=== PATIENT | male | born 1965 ===

== ENCOUNTER 2023-09-03 12:43 | Inpatient (IN) | payer MEDICAID, OTHER ==
[~2023-09-03] VITALS: Ht 185.4 cm; Wt 108.2 kg
[2023-09-03 13:15] LABS: BASOPHILS % (AUTO) 0.6 % (0.0-2.0); HEMATOCRIT 46.2 % (41-53); LYMPHOCYTES # (AUTO) 1.1 K/uL (1.0-4.8); LYMPHOCYTES % (AUTO) 14.4 % (22.0-44.0); MEAN CORPUSCULAR HEMOGLOBIN 33.9 pg (26.0-34.0); MEAN CORPUSCULAR HGB CONC 34.5 G/dL (31.0-37.0); MEAN CORPUSCULAR VOLUME 98 fL (80-100); MONOCYTES # (AUTO) 0.5 K/uL (0.1-1.0); MONOCYTES % (AUTO) 7.4 % (2.0-9.0); NEUTROPHILS # (AUTO) 5.6 K/uL (1.8-7.7); NEUTROPHILS % (AUTO) 76.6 % (40.0-70.0); PLATELET COUNT (AUTO) 228 K/uL (150-450); RED BLOOD CELL COUNT(AUTO) 4.71 MIL/uL (4.50-5.90); WHITE BLOOD COUNT (AUTO) 7.4 K/uL (4.5-11.0)
[2023-09-03 13:19] LABS: COVID AG,FIA SOURCE NASAL SWAB
[2023-09-03 13:29] LABS: ANION GAP 11 mmol/L (8-16); CALCIUM, TOTAL 9.3 mg/dL (8.8-10.5); CARBON DIOXIDE 24 mmol/L (22-29); CHLORIDE 100 mmol/L (98-107); CREATININE 0.85 mg/dL (0.60-1.30); GLOMERULAR FILTR. RATE CALC > 60 mL/min (>60); GLUCOSE,RANDOM 121 mg/dL (70-110); POTASSIUM 3.9 mmol/L (3.5-5.1); SODIUM SERUM 135 mmol/L (136-145); UREA NITROGEN, BLOOD 18 mg/dL (7-18)
[2023-09-03 13:34] LABS: ALANINE AMINOTRANSFERASE 33 U/L (12-78); ALBUMIN 4.1 g/dL (3.4-5.0); ALKALINE PHOSPHATASE 59 U/L (46-116); ASPARTATE AMINOTRANSFERASE 24 U/L (15-37); BILIRUBIN,TOTAL 1.6 mg/dL (0.1-1.0); TOTAL PROTEIN, SERUM 8.3 g/dL (6.4-8.2)
[2023-09-03 13:38] LABS: ALCOHOL, BLOOD (SERUM) < 3 mg/dL (0-10)
[2023-09-03 13:57] LABS: SARS-COV2 (COVID) ANTIGEN,FIA Negative (Negative)
[2023-09-03] MEDS ORDERED: LORazepam 2 MG TABLET PO PRN (14:45)
[2023-09-03] MEDS ORDERED: ZOLPIDEM TARTRATE 10 MG TABLET PO PRN (14:45)
[2023-09-03] MEDS ORDERED: QUEtiapine FUMARATE 100 MG TABLET PO PRN (14:45)
[2023-09-03] MEDS ORDERED: IBUPROFEN 600 MG TABLET PO ONE (15:45)
[2023-09-03] MEDS ORDERED: ACETAMINOPHEN 500 MG TABLET PO ONE (15:45)
[2023-09-03] MEDS ORDERED: LORazepam 2 MG/ML VIAL IM ONE (16:00)
[2023-09-03] MEDS ORDERED: DiphenhydrAMINE HCL 50 MG/ML VIAL IM ONE (16:00)
[2023-09-03] MEDS ORDERED: HYDROCODONE/ACETAMINOPHEN 5-325 MG TABLET PO ONE (16:00)
[2023-09-03 19:06] VITALS: BP 123/71; PULSE 76; RESP 18; TEMP 98.9
[2023-09-03 21:24] VITALS: BP 120/75; PULSE 75; RESP 18; TEMP 98.4
[2023-09-03] MEDS ORDERED: ACETAMINOPHEN 325 MG TABLET PO PRN (21:30)
[2023-09-03] MEDS ORDERED: NICOTINE 14 MG/24 HOUR PATCH TD PRN (21:30)
[2023-09-03] MEDS ORDERED: CloNIDine HCL 0.1 MG TABLET PO PRN (21:30)
[2023-09-03] MEDS ORDERED: MAG HYDROX/ALUMINUM HYD/SIMETH ES 30 ML SUSPENSION UDCUP PO PRN (21:30)
[2023-09-03] MEDS ORDERED: INFLUENZA VIRUS VACCINE QVS 2023-24 (6MO+)/PF 60 MCG/0.5 ML SYRINGE IM. ONE (21:30)
[2023-09-03] MEDS ORDERED: GuaiFENesin/D-METHORPHAN [SUGAR-FREE] 200-20MG/10 ML SYRUP UDCUP PO PRN (21:30)
[2023-09-03] MEDS ORDERED: ALBUTEROL SULFATE HFA 90 MCG/PUFF 8 GM INHALER IH PRN (21:30)
[2023-09-03] MEDS ORDERED: LOPERAMIDE HCL 2 MG CAPSULE PO PRN (21:30)
[2023-09-03] MEDS ORDERED: MAGNESIUM HYDROXIDE SUSPENSION 30 ML UDCUP PO PRN (21:30)
[2023-09-03] MEDS ORDERED: PETROLATUM,WHITE 28 GM JELLY TP PRN (21:30)
[2023-09-03] MEDS ORDERED: ONDANSETRON HCL 4 MG TABLET PO PRN (21:30)
[2023-09-03] MEDS ORDERED: IBUPROFEN 400 MG TABLET PO PRN (21:30)
[2023-09-04 09:27] LABS: BASOPHILS % (AUTO) 0.4 % (0.0-2.0); HEMATOCRIT 43.4 % (41-53); HEMOGLOBIN 14.9 g/dL (13.5-17.5); LYMPHOCYTES # (AUTO) 1.1 K/uL (1.0-4.8); LYMPHOCYTES % (AUTO) 18.2 % (22.0-44.0); MEAN CORPUSCULAR HGB CONC 34.3 G/dL (31.0-37.0); MEAN CORPUSCULAR VOLUME 99 fL (80-100); MONOCYTES # (AUTO) 0.5 K/uL (0.1-1.0); MONOCYTES % (AUTO) 7.9 % (2.0-9.0); NEUTROPHILS # (AUTO) 4.3 K/uL (1.8-7.7); NEUTROPHILS % (AUTO) 72.5 % (40.0-70.0); PLATELET COUNT (AUTO) 198 K/uL (150-450); RED BLOOD CELL COUNT(AUTO) 4.38 MIL/uL (4.50-5.90); RED CELL DISTRIBUTION WIDTH 12.6 % (11.5-14.5); WHITE BLOOD COUNT (AUTO) 5.9 K/uL (4.5-11.0)
[2023-09-04 09:35] LABS: HEMOGLOBIN A1C 5.4 % (3.8-5.6)
[2023-09-04 09:50] VITALS: BP 138/89; PULSE 80; RESP 18; TEMP 97
[2023-09-04 09:51] LABS: ALANINE AMINOTRANSFERASE 30 U/L (12-78); ALBUMIN 3.8 g/dL (3.4-5.0); ALKALINE PHOSPHATASE 58 U/L (46-116); ANION GAP 7 mmol/L (8-16); ASPARTATE AMINOTRANSFERASE 28 U/L (15-37); BILIRUBIN,TOTAL 1.5 mg/dL (0.1-1.0); CALCIUM, TOTAL 9.2 mg/dL (8.8-10.5); CARBON DIOXIDE 27 mmol/L (22-29); CHLORIDE 105 mmol/L (98-107); CREATININE 0.78 mg/dL (0.60-1.30); GLOMERULAR FILTR. RATE CALC > 60 mL/min (>60); GLUCOSE,RANDOM 104 mg/dL (70-110); POTASSIUM 4.3 mmol/L (3.5-5.1); SODIUM SERUM 139 mmol/L (136-145); THYROID STIMULATING HORMONE 4.07 uIU/mL (0.36-3.74); TOTAL PROTEIN, SERUM 7.4 g/dL (6.4-8.2); UREA NITROGEN, BLOOD 15 mg/dL (7-18)
[2023-09-04] MEDS: TAMSULOSIN HCL 0.4 MG CAPSULE PO SCH (09:53)
[2023-09-04] MEDS: ATORVASTATIN CALCIUM 10 MG TABLET PO SCH (09:54)
[2023-09-04] MEDS: PROPRANOLOL HCL 40 MG TABLET PO SCH (09:54)
[2023-09-04] MEDS: LISINOPRIL 5 MG TABLET PO SCH (09:54)
[2023-09-04] MEDS ORDERED: APIXABAN 5 MG TABLET PO SCH (10:00)
[2023-09-04] MEDS: TraMADol HCL 50 MG TABLET PO PRN ×2 (10:05→18:09)
[2023-09-04] MEDS: DULoxetine HCL 20 MG CAPSULE PO SCH (12:19)
[2023-09-04 12:28] LABS: CHOL/HDL RATIO 3.2 (4.2-7.3); CHOLESTEROL 151 mg/dL (131-200); HDL CHOLESTEROL 47 mg/dL (40-60); LDL CHOL (CALC.) 91 mg/dL (0-130); TRIGLYCERIDES 65 mg/dL (15-150)
[2023-09-04 16:05] LABS: APPEARANCE,URINE CLEAR (CLEAR); BILIRUBIN,URINE NEGATIVE (NEGATIVE); COLOR,URINE LIGHT YELLOW (YELLOW); GLUCOSE, URINE (UA) NEGATIVE (NEGATIVE); LEUKOCYTE ESTERASE ,URINE NEGATIVE (NEGATIVE); NITRATE,URINE NEGATIVE (NEGATIVE); OCCULT BLOOD,URINE NEGATIVE (NEGATIVE); PH,URINE 6.5 (5.0-8.0); PH,URINE DRUG SCREEN 6.5 (5.0-8.0); PROTEIN,URINE NEGATIVE (NEGATIVE); UROBILINOGEN,URINE <=1.0 mg/dL (<=1.0)
[2023-09-04 16:12] LABS: AMPHET/METH SCREEN,URINE NEGATIVE (NEGATIVE); BARBITURATE SCREEN, URINE NEGATIVE (NEGATIVE); BENZODIAZEPINES SCREEN,URINE NEGATIVE (NEGATIVE); CANNABINOID SCREEN,URINE POSITIVE (NEGATIVE); COCAINE SCREEN,URINE NEGATIVE (NEGATIVE); METHADONE SCREEN, URINE NEGATIVE (NEGATIVE); OPIATE SCREEN,URINE NEGATIVE (NEGATIVE); PHENCYCLIDINE SCREEN,URINE NEGATIVE (NEGATIVE)
[2023-09-04 16:13] LABS: ALCOHOL, URINE DRUG SCREEN NEGATIVE (NEGATIVE)
[2023-09-04] MEDS: APIXABAN 5 MG TABLET PO SCH (17:43)
[2023-09-04 22:55] VITALS: BP 125/71; PULSE 84; RESP 18; TEMP 98.2
[2023-09-05] MEDS: DULoxetine HCL 20 MG CAPSULE PO SCH (08:56)
[2023-09-05] MEDS: TAMSULOSIN HCL 0.4 MG CAPSULE PO SCH (08:56)
[2023-09-05] MEDS: ATORVASTATIN CALCIUM 10 MG TABLET PO SCH (08:57)
[2023-09-05] MEDS: LISINOPRIL 5 MG TABLET PO SCH (08:57)
[2023-09-05] MEDS: PROPRANOLOL HCL 40 MG TABLET PO SCH ×2 (08:58→17:00)
[2023-09-05] MEDS: APIXABAN 5 MG TABLET PO SCH ×2 (08:58→17:16)
[2023-09-05] MEDS: DOCUSATE SODIUM 100 MG CAPSULE PO PRN ×2 (08:59→18:50)
[2023-09-05 09:42] VITALS: BP 129/89; PULSE 63; RESP 18; TEMP 97.6
[2023-09-05 18:54] VITALS: BP 145/79; PULSE 92; RESP 18; TEMP 98.3
[2023-09-05 19:52] VITALS: RESP 18
[2023-09-05 21:26] VITALS: BP 147/67; PULSE 93; RESP 18; TEMP 97.1
[2023-09-05] MEDS: TraMADol HCL 50 MG TABLET PO PRN (21:29)
[2023-09-05 22:29] VITALS: RESP 18
[2023-09-06 07:06] VITALS: BP 145/70; PULSE 88; RESP 18; TEMP 97.2
[2023-09-06] MEDS: TraMADol HCL 50 MG TABLET PO PRN (07:09)
[2023-09-06 08:09] VITALS: BP 118/68; PULSE 74; RESP 17; TEMP 98
[2023-09-06] MEDS: TAMSULOSIN HCL 0.4 MG CAPSULE PO SCH (09:00)
[2023-09-06] MEDS: LISINOPRIL 5 MG TABLET PO SCH (09:00)
[2023-09-06] MEDS: DULoxetine HCL 20 MG CAPSULE PO SCH (09:00)
[2023-09-06] MEDS: ATORVASTATIN CALCIUM 10 MG TABLET PO SCH (09:00)
[2023-09-06 09:57] VITALS: BP 118/68; PULSE 75; RESP 17; TEMP 97.5
[2023-09-06] MEDS ORDERED: DULO20CA71 PO (10:09)
[2023-09-06] MEDS ORDERED: TAMS0.4C94 PO (10:09)
[2023-09-06] MEDS ORDERED: PROP40TA7 PO (10:09)
[2023-09-06] MEDS ORDERED: LISI-892 PO (10:09)
[2023-09-06] MEDS ORDERED: APIX5TAB PO (10:09)
[2023-09-06] MEDS ORDERED: ATOR10TA69 PO (10:09)
[2023-09-06] MEDS: APIXABAN 5 MG TABLET PO SCH ×2 (10:32→17:00)
[2023-09-06] MEDS: PROPRANOLOL HCL 40 MG TABLET PO SCH ×2 (10:32→17:00)
== END 2023-09-06 17:45 | disposition home or self-care (01) | DRG 751 ==
LOC: EMS 12:43 → 3EI 16:32
PROVIDERS: ADMIT Psychiatry & Neurology Psychiatry; ATTEND Psychiatry & Neurology Psychiatry
DX: F33.2 Major depressive disorder, recurrent severe without psychotic features (principal); I50.9 Heart failure, unspecified; B19.10 Unspecified viral hepatitis B without hepatic coma; R45.851 Suicidal ideations; I11.0 Hypertensive heart disease with heart failure; G89.29 Other chronic pain; M16.0 Bilateral primary osteoarthritis of hip; E78.5 Hyperlipidemia, unspecified; N40.0 Benign prostatic hyperplasia without lower urinary tract symptoms; Z79.899 Other long term (current) drug therapy; Z20.822 Contact with and (suspected) exposure to COVID-19
CPT/HCPCS: 80053; 80061; 80307; 81003; 83036; 84443; 85025; 87081; 99285; G0480; J1200; J2060